=== PATIENT | male | born 1960 | race Caucasian/White ===

== ENCOUNTER 2019-01-24 20:58 | Observation (INO) | payer MEDICARE ==
[2019-01-24 21:17] LABS: Glucose,Whole Blood 111 mg/dL (75-99)
[2019-01-24] MEDS ORDERED: SODIUM CHLORIDE 0.9% 1,000 ML IV ONE (21:37)
[2019-01-24 21:48] LABS: Basophils % (A) 0 %; Eosinophils # (A) 0.2 k/uL (0-0.7); Eosinophils % (A) 3 %; HCT 36.8 % (39.0-53.0); HGB 12.5 gm/dL (13.0-17.5); Lymphocytes # (A) 2.7 k/uL (1.0-4.8); Lymphocytes % (A) 31 %; MCH 34.2 pg (25.0-35.0); MCHC 33.9 g/dL (31.0-37.0); MCV 100.9 fL (80.0-100.0); Mean Platelet Volume 7.7; Monocytes # (A) 0.5 k/uL (0-1.0); Monocytes % (A) 5 %; Neutrophils # (A) 5.2 k/uL (1.3-7.7); Neutrophils % (A) 60 %; Platelet Count 408 k/uL (150-450); RBC 3.64 m/uL (4.30-5.90); RDW 12.7 % (11.5-15.5); WBC 8.7 k/uL (3.8-10.6)
[2019-01-24 21:59] LABS: African American GFR (CKD) >90 (>60 ml/min/1.73 sqM); Alcohol <10 mg/dL; Anion Gap 6 mmol/L; Calcium 9.7 mg/dL (8.4-10.2); Carbon Dioxide 23 mmol/L (22-30); Chloride 114 mmol/L (98-107); Glucose 86 mg/dL (74-99); Non-African American GFR(CKD) 86 (>60 ml/min/1.73 sqM); Sodium 143 mmol/L (137-145); Total Bilirubin 0.4 mg/dL (0.2-1.3); Total Protein 6.7 g/dL (6.3-8.2)
[2019-01-24 22:01] LABS: ALT 20 U/L (4-49); AST 28 U/L (17-59); Blood Urea Nitrogen 17 mg/dL (9-20); Potassium 4.3 mmol/L (3.5-5.1)
[2019-01-24 22:02] LABS: Alkaline Phosphatase 73 U/L (38-126)
[2019-01-24 22:04] LABS: INR 0.9 (<1.2); Partial Thromboplastin Time 24.6 sec (22.0-30.0); Prothrombin Time 9.9 sec (9.0-12.0)
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
--- NOTE | 2019-01-24 22:43 | CT ---
EXAM: CT Head Without Intravenous Contrast CLINICAL HISTORY: ITS.REASON CT Reason: ALtered mental status; Poss injury TECHNIQUE: Axial computed tomography images of the head/brain without intravenous contrast. CTDI is 45.2 mGy and DLP is 1036 mGy-cm. This CT exam was performed using one or more of the following dose reduction techniques: automated exposure control, adjustment of the mA and/or kV according to patient size, and/or use of iterative reconstruction technique. COMPARISON: None FINDINGS: Brain: No acute infarct or hemorrhage. No extra-axial fluid collection. No mass effect or midline shift. Ventricles and sulci: Normal. No ventriculomegaly or intraventricular hemorrhage. Bones: Normal. No bony lesion or fracture. Subcutaneous tissues: Normal. Sinuses: Normal. No air-fluid levels or mucosal thickening. Mastoid air cells: Normal. Orbits: Grossly unremarkable. IMPRESSION: No acute intracranial abnormality. EXAM: CT Cervical Spine Without Intravenous Contrast CLINICAL HISTORY: ITS.REASON CT Reason: Altered mental status; Poss injury TECHNIQUE: Axial computed tomography images of the cervical spine without intravenous contrast. CTDI is 13.2 mGy and DLP is 417.6 mGy-cm. This CT exam was performed using one or more of the following dose reduction techniques: automated exposure control, adjustment of the mA and/or kV according to patient size, and/or use of iterative reconstruction technique. COMPARISON: None FINDINGS: Bones: Normal alignment. No acute fracture or bony lesion. Disc spaces: No subluxation. No spinal canal stenosis or neuroforaminal stenosis. Soft tissues: Normal. Other: Scattered lymph nodes are likely reactive. Mild emphysematous changes in the visualized upper lungs. IMPRESSION: No acute traumatic abnormality.
--- NOTE | 2019-01-24 22:54 | XR ---
EXAM: XR Chest, 2 Views CLINICAL HISTORY: ITS.REASON XR Reason: altered mental status TECHNIQUE: Frontal and lateral views of the chest. COMPARISON: None FINDINGS: Hardware: None. Lungs/pleura: Normal. No focal consolidation. No pleural effusion or pneumothorax. Heart/mediastinum: Normal. No cardiomegaly. Soft tissues: Unremarkable. Bones: Probable chronic compression deformities in the lower thoracic spine. Upper abdomen: Normal. IMPRESSION: No acute disease identified.
[2019-01-24 22:58] LABS: Appearance,Urine Clear (Clear); Bilirubin,Urine Negative (Negative); Blood,Urine Negative (Negative); Color,Urine Yellow; Glucose,Urine (UA) Negative (Negative); Ketones,Urine Negative (Negative); Leukocyte Esterase,Urine Negative (Negative); Nitrite,Urine Negative (Negative); Protein,Urine Trace (Negative); Specific Gravity,Urine 1.026 (1.001-1.035)
[2019-01-24 23:11] LABS: Amphetamine Screen,Urine Not Detected (NotDetected); Barbiturate Screen,Urine Not Detected (NotDetected); Benzodiazepines Screen,Urine Detected (NotDetected); Cocaine Screen,Urine Not Detected (NotDetected); Methadone Screen, Urine Not Detected (NotDetected); Opiate Screen,Urine Not Detected (NotDetected); Oxycodone Screen, Urine Not Detected (NotDetected); Phencyclidine Screen,Urine Not Detected (NotDetected); Tricyclic Antidepressant,Urine Detected (NotDetected); Urn Cannabinoid Scrn Not Detected (NotDetected)
[2019-01-25] MEDS ORDERED: NALOXONE 0.4 MG/ML 1 ML VIAL IV PRN (02:54)
[2019-01-25] MEDS ORDERED: THIAMINE 100 MG/ML 2 ML VIAL IM STA (02:56)
[2019-01-25] MEDS: SODIUM CHLORIDE 0.9% 1,000 ML IV SCH ×2 (04:32→12:12)
[2019-01-25] MEDS ORDERED: ERGOCALCIFEROL 50,000 UNIT CAP PO SCH (09:00)
[2019-01-25] MEDS: ATORVASTATIN 40 MG TAB PO SCH (09:33)
[2019-01-25] MEDS: THIAMINE 100 MG TAB PO SCH (09:33)
[2019-01-25] MEDS: HYDROcodone/APAP 7.5-325MG 1 EACH TAB PO PRN ×3 (09:33→20:48)
[2019-01-25] MEDS: clonazePAM 0.5 MG TAB PO PRN ×2 (09:33→16:18)
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
[2019-01-25] MEDS: BUTALB/APAP/CAFF 50-325-40MG TAB PO PRN (20:49)
[2019-01-25] MEDS ORDERED: AMITRIPTYLINE HCL 50 MG TAB PO SCH (21:00)
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
[2019-01-26] MEDS: NICOTINE 21MG/24HR PATCH TRANSDERM SCH ×2 (00:38→08:05)
[2019-01-26] MEDS: clonazePAM 0.5 MG TAB PO PRN ×3 (00:38→17:51)
[2019-01-26] MEDS: ENOXAPARIN 40 MG/0.4 ML SYRINGE SQ SCH ×3 (00:38→12:41)
[2019-01-26] MEDS: HYDROcodone/APAP 7.5-325MG 1 EACH TAB PO PRN ×5 (00:38→17:51)
[2019-01-26] MEDS: SODIUM CHLORIDE 0.9% 1,000 ML IV SCH ×3 (01:49→16:06)
[2019-01-26 04:32] LABS: Glucose,Whole Blood 102 mg/dL (75-99)
[2019-01-26] MEDS: ATORVASTATIN 40 MG TAB PO SCH (08:04)
[2019-01-26] MEDS: THIAMINE 100 MG TAB PO SCH (08:04)
[2019-01-26] MEDS: BUTALB/APAP/CAFF 50-325-40MG TAB PO PRN ×2 (12:00→19:17)
[2019-01-26 18:28] LABS: Folate, Serum 9.2 ng/mL
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
[2019-01-26 19:51] VITALS: BP 118/80; PULSE 84; RESP 18; TEMP 98.2
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
[2019-01-28] MEDS ORDERED: ERGOCALCIFEROL 50,000 UNIT CAP PO SCH (09:00)
== END 2019-01-26 20:27 | disposition home or self-care (01) ==
LOC: SUPCPDRO 20:58 → EC 20:58 → 6NMEDSUR 01-25 02:47 → 4SSUR 01-25 12:49
PROVIDERS: ADMIT Hospitalist; ATTEND Hospitalist
DX: G93.40 Encephalopathy, unspecified (principal); F31.9 Bipolar disorder, unspecified; F17.210 Nicotine dependence, cigarettes, uncomplicated; E86.0 Dehydration; G89.29 Other chronic pain; M54.9 Dorsalgia, unspecified; M25.559 Pain in unspecified hip; M54.2 Cervicalgia; R51 Headache; F41.9 Anxiety disorder, unspecified; Z72.89 Other problems related to lifestyle; Z91.030 Bee allergy status; Z88.8 Allergy status to other drugs, medicaments and biological substances; Z90.89 Acquired absence of other organs; Z98.890 Other specified postprocedural states; Z87.820 Personal history of traumatic brain injury; Z79.891 Long term (current) use of opiate analgesic; Z79.899 Other long term (current) drug therapy; Z82.49 Family history of ischemic heart disease and other diseases of the circulatory system
CPT/HCPCS: 96361 ×2; 96372 ×2; 96360; 99285; 36415; 95816; 93005; 80053; 84443; 82607; 82140; 82746; 84484; 85025; 85610; 85730; 81003; 80306; 71046; 72125; 70450; G0378 ×3; G0480; S4990; J3411; J1650; 80320

== ENCOUNTER 2021-11-26 08:56 | Day surgery (SDC) | payer MEDICARE ==
[2021-11-24 13:47] VITALS: BMI 24.3
[~2021-11-26 08:56] MED LIST: LACTATED RINGERS 1,000 ML IV SCH
[2021-11-26 09:43] VITALS: TEMP 97.2
[2021-11-26] MEDS ORDERED: LACTATED RINGERS 1,000 ML IV ONE ×2 (09:46)
[2021-11-26] MEDS ORDERED: PROPOFOL 10 MG/ML 20 ML VIAL IV ONE (09:52)
--- NOTE | 2021-11-26 10:13 | P.PCN ---
Date of Procedure: 11/26/21 Procedure(s) Performed: BRIEF HISTORY: Patient is a 61-year-old pleasant white male scheduled for an elective colonoscopy as a part of evaluation of intermittent rectal bleeding for the last 6 months duration. PROCEDURE PERFORMED: Colonoscopy. PREOPERATIVE DIAGNOSIS: Intermittent rectal bleeding IV sedation per Anesthesia. PROCEDURE: After informed consent was obtained, the patient, was brought into the endoscopy unit. IV sedation was administered by Anesthesia under continuous monitoring. Digital rectal examination was normal. Initially the Olympus CF-160 flexible video colonoscope was then inserted in the rectum, gradually advanced into the cecum without any difficulty. Careful examination was performed as the scope was gradually being withdrawn. Ileocecal valve and the appendiceal orifice were visualized and appeared normal. Prep was excellent. Mucosa of the cecum, ascending colon, transverse colon, descending colon, sigmoid colon, and rectum appeared normal. Scattered sigmoid diverticulosis. Retroflexion was performed in the rectum and no lesions were seen. Scattered screening for colorectal neoplasia The patient tolerated the procedure well. IMPRESSION: Normal-appearing colon from rectum to cecum no evidence of colorectal neoplasia . Scattered sigmoid diverticulosis. RECOMMENDATIONS: Findings of this examination were discussed with the patientas well as his family. He was advised to have a repeat screening colonoscopy in 10 years.
[2021-11-26 10:44] VITALS: BP 119/76; PULSE 89; RESP 20
== END 2021-11-26 10:44 | disposition home or self-care (01) ==
LOC: ORWHC2ENDO 08:56
PROVIDERS: ATTEND Internal Medicine Gastroenterology
DX: K62.5 Hemorrhage of anus and rectum (principal); K57.30 Diverticulosis of large intestine without perforation or abscess without bleeding; E78.5 Hyperlipidemia, unspecified; F17.210 Nicotine dependence, cigarettes, uncomplicated; K21.9 Gastro-esophageal reflux disease without esophagitis
CPT/HCPCS: 45378; J2704